=== PATIENT | female | born 1995 | race Two or more races ===

== ENCOUNTER 2016-12-05 20:03 | Emergency (ER) | payer MEDICAID ==
[~2016-12-05] VITALS: Ht 170.2 cm; Wt 56.8 kg
[2016-12-05 20:56] LABS: ASPARTATE AMINO TRANSFERASE 16 U/L (15-37); BLOOD UREA NITROGEN 9 mg/dL (7-18)
[2016-12-05 21:01] LABS: PATH.CAST-FLAG NOT PRESENT; SPERM-FLAG NOT PRESENT; SRC-FLAG NOT PRESENT; XTAL-FLAG NOT PRESENT; YLC-FLAG NOT PRESENT
[2016-12-05 21:55] VITALS: BP 110/65
== END 2016-12-05 23:11 | disposition home or self-care (01) ==
LOC: ED 22:00
DX: N83.202 Unspecified ovarian cyst, left side (principal)
CPT/HCPCS: 36415; 76830; 80053; 81001; 84703; 85025; 99285

== ENCOUNTER 2016-12-23 10:46 | Emergency (ER) | payer SELFPAY ==
[2016-12-23] MEDS ORDERED: ONDANSETRON 2MG/ML, 2ML ONE ×2 (12:10→15:03)
[2016-12-23] MEDS ORDERED: MORPHINE SULFATE 4 MG/ML, 1ML ONE (12:10)
[2016-12-26 13:10] LABS: ASPARTATE AMINO TRANSFERASE 9 U/L (15-37); BLOOD UREA NITROGEN 10 mg/dL (7-18)
== END 2016-12-23 15:10 | disposition home or self-care (01) ==
LOC: ED 10:46
DX: N94.0 Mittelschmerz (principal)
CPT/HCPCS: 36415; 76830; 80053; 81003; 81025; 85025; 99285

== ENCOUNTER 2017-06-22 14:10 | Emergency (ER) | payer OTHER ==
[~2017-06-22] VITALS: Ht 167.6 cm; Wt 56.9 kg
[2017-06-22 16:04] LABS: HEMATOCRIT 34.3 % (34.6-47.8); HEMOGLOBIN 11.4 g/dL (11.7-16.4)
[2017-06-22 16:13] LABS: BLOOD UREA NITROGEN 7 mg/dL (7-18)
[2017-06-22 16:57] VITALS: BP 105/60
== END 2017-06-22 17:49 | disposition home or self-care (01) ==
LOC: ED 17:27
DX: R10.12 Left upper quadrant pain (principal); R10.32 Left lower quadrant pain; N93.8 Other specified abnormal uterine and vaginal bleeding
CPT/HCPCS: 36415; 74176; 80048; 81001; 81003; 82040; 84703; 85025; 99285

== ENCOUNTER 2018-02-28 19:40 | Emergency (ER) | payer SELFPAY ==
[~2018-02-28] VITALS: Ht 170.2 cm; Wt 59.9 kg
[2018-02-28] MEDS ORDERED: BCP (19:49)
[2018-02-28] MEDS ORDERED: LEVO1TAB6 PO (20:07)
[2018-02-28 20:18] LABS: BASOPHILS # (AUTO) 0.04 x10^3/uL (0-0.1); BASOPHILS % (AUTO) 1 % (0-1); EOSINOPHILS # (AUTO) 0.14 x10^3/uL (0-0.4); EOSINOPHILS % (AUTO) 2 % (1-7); LYMPHOCYTES # (AUTO) 1.89 x10^3/uL (1-3.4); LYMPHOCYTES % (AUTO) 27 % (22-44); MD NO; MEAN CORPUSCULAR HEMOGLOBIN 30.6 pg (27.0-34.8); MEAN CORPUSCULAR HGB CONC 33.9 g/dL (32.4-35.8); MEAN CORPUSCULAR VOLUME 90.3 fL (80-100); MEAN PLATELET VOLUME 8.3 fL (7.4-10.4); MONOCYTES # (AUTO) 0.59 x10^3/uL (0.2-0.8); MONOCYTES % (AUTO) 8 % (2-9); NEUTROPHILS # (AUTO) 4.36 x10^3/uL (1.8-6.8); NEUTROPHILS % (AUTO) 62 % (42-75); PLATELET COUNT 292 x10^3/uL (130-400); RED BLOOD COUNT 4.14 x10^6/uL (3.82-5.3); RED CELL DISTRIBUTION WIDTH 13.8 % (9.6-15.2)
[2018-02-28 20:20] LABS: MICROSCOPIC AUTO
[2018-02-28 20:21] LABS: CULTURE INDICATED? NO
[2018-02-28 20:34] LABS: ALANINE AMINOTRANSFERASE 18 U/L (12-78); ALBUMIN 3.7 g/dL (3.4-5.0); ANION GAP 8 mmol/L (5-15); CALCIUM 8.6 mg/dL (8.5-10.1); CHLORIDE 108 mmol/L (98-107); CREATININE 0.73 mg/dL (0.55-1.02)
[2018-02-28 20:39] LABS: ALKALINE PHOSPHATASE 65 U/L (45-117); BILIRUBIN,TOTAL 0.2 mg/dL (0.2-1.0); TOTAL PROTEIN 7.5 g/dL (6.4-8.2)
[2018-02-28 21:36] VITALS: BP 115/68
== END 2018-02-28 22:05 | disposition home or self-care (01) ==
LOC: ED 20:17
DX: R10.31 Right lower quadrant pain (principal); M54.9 Dorsalgia, unspecified
CPT/HCPCS: 36415; 76856; 80053; 81001; 83690; 84703; 85025; 99285